=== PATIENT | male | born 1960 | race Caucasian/White ===

== ENCOUNTER 2018-03-29 12:07 | Emergency (ER) | payer MEDICAID ==
[~2018-03-29] VITALS: Ht 177.8 cm; Wt 90.0 kg
[2018-03-29] MEDS ORDERED: ketorolac trometh inj. 60 MG/2 ML VIAL IM ONE (13:30)
[2018-03-29] MEDS ORDERED: cyclobenzaprine 10mg tablet PO ONE (13:30)
[2018-03-29 13:47] VITALS: BP 132/85
== END 2018-03-29 13:49 | disposition home or self-care (01) ==
LOC: ER 12:08
DX: M54.5 Low back pain (principal); G89.29 Other chronic pain; I10 Essential (primary) hypertension; E11.9 Type 2 diabetes mellitus without complications; X50.1XXA Overexertion from prolonged static or awkward postures, initial encounter; Y93.89 Activity, other specified; Y92.89 Other specified places as the place of occurrence of the external cause; Y99.8 Other external cause status
CPT/HCPCS: 96372; 99284; J1885

== ENCOUNTER → 2023-12-29 | Outpatient (CLI) | payer MEDICAID | END | disposition home or self-care (01) | LOC: RAD 09:53 | PROVIDERS: ATTEND Family Medicine | DX: M16.0 Bilateral primary osteoarthritis of hip (principal); M25.552 Pain in left hip | CPT/HCPCS: 73502 ==